=== PATIENT | female | born 1985 | race Caucasian/White ===

== ENCOUNTER 2016-11-28 08:10 | Emergency (ER) | payer MEDICAID ==
[~2016-11-28] VITALS: Ht 154.9 cm; Wt 68.2 kg
--- NOTE | 2016-11-28 08:19 | NUR ---
Patient ambulated to bed 09.
[2016-11-28 08:22] VITALS: BP 114/78
--- NOTE | 2016-11-28 08:27 | NUR ---
PATIENT PRESENTS TO ED WITH C/O BL EYE PAIN X 1 MONTH; PT STATES NO TRAUMA OR INJURY TO SITES AT THIS TIME.DENIES ANY MEDICAL HX:NO REDNESS NOTED; DENIES N/V/D; SKIN IS PINK/WARM/DRY; AAOX4 WITH EVEN AND STEADY GAIT; LUNGS CLEAR BL; HR EVEN AND REGULAR; PT DENIES ANY FEVER, CP, SOB, OR COUGH AT THIS TIME; PATIENT STATES PAIN OF 6/10 AT THIS TIME;PATIENT POSITIONED FOR COMFORT; HOB ELEVATED; BEDRAILS UP X2; BED DOWN. ER MD MADE AWARE OF PT STATUS.
--- NOTE | 2016-11-28 08:42 | NUR ---
Dr. Gonzalez evaluating patient at bedside.
[2016-11-28 09:04] VITALS: BP 121/81
--- NOTE | 2016-11-28 09:04 | NUR ---
Patient discharged with v/s stable. Written and verbal after care instructions given and explained. Patient alert, oriented and verbalized understanding of instructions. Ambulatory with steady gait. All questions addressed prior to discharge. ID band removed. Patient advised to follow up with PMD. Rx of ERYTHROMYCIN given. Patient educated on indication of medication including possible reaction and side effects. Opportunity to ask questions provided and answered.
== END 2016-11-28 09:04 | disposition home or self-care (01) ==
LOC: MED 08:10
DX: H01.004 Unspecified blepharitis left upper eyelid (principal)
CPT/HCPCS: 99283

== ENCOUNTER 2018-10-20 15:38 | Emergency (ER) | payer MEDICAID, OTHER ==
[~2018-10-20] VITALS: Ht 154.9 cm; Wt 66.4 kg
[2018-10-20 15:44] VITALS: BP 118/84
[2018-10-20] MEDS ORDERED: CYCLOBENZAPRINE 10 MG TAB PO ONE (16:20)
[2018-10-20] MEDS ORDERED: KETOROLAC 30 MG/ML VIAL IM ONE (16:20)
[2018-10-20 17:26] VITALS: BP 109/63
== END 2018-10-20 17:26 | disposition home or self-care (01) ==
LOC: MED 15:38
DX: S39.012A Strain of muscle, fascia and tendon of lower back, initial encounter (principal); W50.0XXA Accidental hit or strike by another person, initial encounter; Y92.89 Other specified places as the place of occurrence of the external cause; Y93.89 Activity, other specified; Y99.8 Other external cause status
CPT/HCPCS: 72110; 81025; 96372; 99283; J1885

== ENCOUNTER 2019-09-11 14:27 | Emergency (ER) | payer OTHER ==
[~2019-09-11] VITALS: Ht 157.5 cm; Wt 59.9 kg
[2019-09-11 14:31] VITALS: BP 132/81
[2019-09-11] MEDS ORDERED: ONDANSETRON 4 MG ODT PO ONE (14:55)
[2019-09-11 15:42] VITALS: BP 128/79
== END 2019-09-11 15:43 | disposition home or self-care (01) ==
LOC: MED 14:27
DX: R11.2 Nausea with vomiting, unspecified (principal); R42 Dizziness and giddiness; R53.1 Weakness
CPT/HCPCS: 81002; 81025; 99283; Q0162

== ENCOUNTER 2021-11-04 14:21 | Emergency (ER) | payer OTHER ==
[~2021-11-04] VITALS: Ht 152.4 cm; Wt 56.2 kg
[2021-11-04 14:29] VITALS: BP 116/70
[2021-11-04] MEDS ORDERED: KETOROLAC 30 MG/ML VIAL IM ONE (14:50)
[2021-11-04] MEDS ORDERED: cefTRIAXone 1,000 MG in LIDOCAINE MPF 1% 2.1 ML IM ONE (16:35)
[2021-11-04] MEDS ORDERED: CEPH-588 PO (16:45)
[2021-11-04] MEDS ORDERED: CYCL-711 PO (16:45)
[2021-11-04] MEDS ORDERED: IBUP-2213 PO (16:45)
[2021-11-04] MEDS ORDERED: LID5T TP (16:45)
[2021-11-04] MEDS ORDERED: LIDOCAINE MPF 1% 5 ML ONE (16:54)
[2021-11-04] MEDS ORDERED: cefTRIAXone 1,000 MG VIAL ONE (16:54)
--- NOTE | 2021-11-04 17:12 | NUR ---
36 y/o female bib self from home, pt presents to ed with c/o low back pain after carrying boxes for 3 days. denies fall, trauma to area. denies dysuria, hematuria, vaginal bleeding or discharge. denies nausea, vomiting, diarrhea. skin is pink/warm/dry. a&o x4, macedonian speaking, with even and steady gait. lungs clear bl, heart rate even and regular. pt denies any fever, cp, sob, or cough at this time. pmh: nka med: denies
[2021-11-04 17:25] VITALS: BP 108/66
--- NOTE | 2021-11-04 17:25 | NUR ---
Patient discharged with v/s stable. Written and verbal after care instructions FOR UTI AND LOWER BACK PAIN given and explained. Patient alert, oriented and verbalized understanding of instructions. Ambulatory with steady gait. All questions addressed prior to discharge. ID band removed. Patient advised to follow up with PMD. Rx of KELFEX,FLEXERIL, IBUPROFEN AND LIDOCAINE given. Opportunity to ask questions provided and answered.
--- NOTE | 2021-11-04 17:30 | NUR ---
The patient's care was reviewed and supervised by ED Agency Nurse 9, RN, RN.
== END 2021-11-04 17:25 | disposition home or self-care (01) ==
LOC: MED 14:21
DX: M54.50 Low back pain, unspecified (principal)
CPT/HCPCS: 81002; 81025; 87086; 96372; 99284; J0696; J1885; J2001

== ENCOUNTER 2021-12-19 12:13 | Emergency (ER) | payer OTHER ==
[~2021-12-19] VITALS: Ht 152.4 cm; Wt 63.0 kg
[~2021-12-19 12:13] MED LIST: CEPH-588 PO; CYCL-711 PO; IBUP-2213 PO; LID5T TP
[2021-12-19 12:33] VITALS: BP 122/79
--- NOTE | 2021-12-19 13:15 | NUR ---
36y/o female presents to ED with c/o eye swelling and facial pain x3days. Pt reports constant pulsating, 8/10 left eye pain that radiates to left side of face and head. Pt reports redness started 3 days ago and spread up to forehead and down left side of face to chin. Pt denies trauma/injury, facial itching or medication use today.
[2021-12-19] MEDS ORDERED: TETRACAINE HCL/PF 0.5% OPTH 4 ML BTL OP ONE (14:30)
[2021-12-19] MEDS ORDERED: FLUORESCEIN OPTH STRIP 1 MG OP ONE (14:30)
[2021-12-19] MEDS ORDERED: ACET-10509 PO (15:11)
[2021-12-19] MEDS ORDERED: TRAM50TA3 PO (15:11)
[2021-12-19] MEDS ORDERED: VALA1TAB2 PO (15:11)
[2021-12-19 15:20] VITALS: BP 106/65
--- NOTE | 2021-12-19 15:20 | NUR ---
Patient discharged with v/s stable. Written and verbal after care instructions about shingles given and explained. Patient alert, oriented and verbalized understanding of instructions. Ambulatory with steady gait. All questions addressed prior to discharge. ID band removed. Patient advised to follow up with PMD. Rx of TYLENOL, TRAMADOL AND VALTREX given. Patient educated on indication of medication including possible reaction and side effects. Opportunity to ask questions provided and answered.
== END 2021-12-19 15:20 | disposition home or self-care (01) ==
LOC: MED 12:13
DX: B02.30 Zoster ocular disease, unspecified (principal); Z79.899 Other long term (current) drug therapy; Z98.890 Other specified postprocedural states
CPT/HCPCS: 81002; 81025; 99283

== ENCOUNTER 2023-02-15 21:50 | Emergency (ER) | payer OTHER ==
[~2023-02-15] VITALS: Ht 157.5 cm; Wt 65.8 kg
[~2023-02-15 21:50] MED LIST changes: +ACET-10509 PO; +TRAM50TA3 PO; +VALA1TAB2 PO
[2023-02-15 22:10] VITALS: BP 129/88; PULSE 78; RESP 17; TEMP 97.8; O2SAT 100
[2023-02-16] MEDS ORDERED: KETOROLAC 30 MG/ML VIAL IM ONE (01:45)
[2023-02-16 05:05] VITALS: O2SAT 100
[2023-02-16 06:28] VITALS: BP 96/58; PULSE 58; RESP 16; O2SAT 99
[2023-02-16] MEDS ORDERED: ACET-10509 PO (07:15)
[2023-02-16] MEDS ORDERED: NAPR-54 PO (07:15)
== END 2023-02-16 07:21 | disposition home or self-care (01) ==
LOC: MED 21:50
DX: R51.9 Headache, unspecified (principal); Z79.899 Other long term (current) drug therapy
CPT/HCPCS: 70450; 96372; 99285; J1885